=== PATIENT | female | born 1980 | race Caucasian/White ===

== ENCOUNTER → 2016-11-21 | Outpatient (CLI) | payer OTHER ==
[~2016-11-21] MED LIST: /BACL20TA PO; ADDE5TAB5 PO; ADV100INH INH; ADV500INH INH; ALB2.5NEB INH; ALBU17IN INH; BUTR10DI2 TD; CITA20TA4 PO; CLON-412 PO; COLA50CA3 PO; DULO30CA PO; FENT12PA TOP; IBUP200T2 PO; NAPR220T PO; NORE0.353 PO; PERC5TAB6 PO; SENO8.6T2 PO; TIZA4CAP PO; TRAM50TA2 PO; TRAZ50TA4 PO; ULTR50TA PO; VALI10TA PO; ZOFR20TA PO; [UNRECOGNIZED DRUG - CODE] PO; [UNRECOGNIZED DRUG - OTHER] PO
[2016-11-21 11:35] LABS: VITAMIN B12 LEVEL > 2000 PG/ML (247-911)
[2016-11-21 11:39] LABS: ALBUMIN 3.4 GM/DL (3.2-5.2); ALBUMIN/GLOBULIN RATIO 0.92 (1.00-1.93); ALKALINE PHOSPHATASE 65 U/L (45-117); ALT/SGPT 22 U/L (12-78); ANION GAP 6 MEQ/L (8-16); AST/SGOT 10 U/L (15-37); BILIRUBIN,TOTAL 0.4 MG/DL (0.2-1.0); BLOOD UREA NITROGEN 10 MG/DL (7-18); CALCIUM LEVEL 8.3 MG/DL (8.5-10.1); CARBON DIOXIDE LEVEL 27 MEQ/L (21-32); CHLORIDE LEVEL 107 MEQ/L (98-107); CHOLESTEROL LEVEL 172 MG/DL (<200); GLOMERULAR FILTRATION RATE > 60.0 (>60); GLUCOSE, FASTING 74 MG/DL (70-105); POTASSIUM SERUM 4.4 MEQ/L (3.5-5.1); SODIUM LEVEL 140 MEQ/L (136-145); TOTAL PROTEIN 7.1 GM/DL (6.4-8.2); TRIGLYCERIDES LEVEL 88 MG/DL (<150)
== END ==
LOC: M LAB 10:18
PROVIDERS: ATTEND Physician Assistant
DX: Z02.9 Encounter for administrative examinations, unspecified (principal); R53.82 Chronic fatigue, unspecified; R63.5 Abnormal weight gain; Z13.220 Encounter for screening for lipoid disorders

== ENCOUNTER → 2016-12-16 | Outpatient (CLI) | payer OTHER ==
[~2016-12-16] VITALS: Ht 165.1 cm; Wt 107.0 kg
[~2016-12-16] MED LIST changes: +BREO1INH INH; +FOLI1TAB2 PO; +LIDOCAINE 2% INJ 100 MG/5 ML SYRINGE As Ordered ONE; +MIRA33504 PO; +MULT1TAB10 PO; +NS 1,000 ML IV SCH; +OMEP40CA2 PO; +PROPOFOL 200 MG/20 ML VIAL As Ordered ONE; +VITA-112 PO; +ZYRT10CA PO
--- NOTE | 2016-12-16 13:29 | ROOR ---
Patient Name: Brooklynn Marino Procedure Date: 12/16/2016 1:11 PM Date of : 1980 Age: 35 Room: [facility] Gender: Female Note Status: Finalized Procedure: Upper GI endoscopy Indications: Functional Dyspepsia, Heartburn Providers: Benny LAU MD Referring MD: MACK VELOZ Requesting Provider: Medicines: Monitored Anesthesia Care Complications: No immediate complications. Procedure: Pre-Anesthesia Assessment: - The heart rate, respiratory rate, oxygen saturations, blood pressure, adequacy of pulmonary ventilation, and response to care were monitored throughout the procedure. The Endoscope was introduced through the mouth, and advanced to the second part of duodenum. The upper GI endoscopy was accomplished without difficulty. The patient tolerated the procedure well. Findings: The esophagus was normal. The stomach was normal. The examined duodenum was normal. (relatively large compliant stomach--Not necessarily abnormal, but may sometimes be seen with gastroparesis.) Impression: - Normal esophagus. - Normal stomach. - Normal examined duodenum. - (relatively large compliant stomach--Not necessarily abnormal, but may sometimes be seen with gastroparesis.) - No specimens collected. Recommendation: - Continue present medications. - Gastroparesis diet: - Eat smaller, more frequent meals throughout the day. - Low fat diet. - Liquid/soft foods are tolerated better than solid foods. - Low fiber/well cooked vegetables are tolerated better than high fiber/fibrous foods/raw vegetables. - Avoid medications that inhibit gastric/intestinal motility such as narcotic medications. Benny Lau MD Benny LAU MD 12/16/2016 1:29:16 PM This report has been signed electronically. Number of Addenda: 0 Note Initiated On: 12/16/2016 1:11 PM Estimated Blood Loss: Estimated blood loss: none.
--- NOTE | 2016-12-16 13:33 | ROOR ---
Patient Name: Brooklynn Marino Procedure Date: 12/16/2016 1:12 PM Date of : 1980 Age: 35 Room: [facility] Gender: Female Note Status: Finalized Procedure: Colonoscopy Indications: Generalized abdominal pain, Hematochezia, Constipation Providers: Benny LAU MD Referring MD: MACK VELOZ Requesting Provider: Medicines: Monitored Anesthesia Care Complications: No immediate complications. Procedure: Pre-Anesthesia Assessment: - The heart rate, respiratory rate, oxygen saturations, blood pressure, adequacy of pulmonary ventilation, and response to care were monitored throughout the procedure. The Colonoscope was introduced through the anus and advanced to 6 cm into the ileum. The colonoscopy was performed without difficulty. The patient tolerated the procedure well. The quality of the bowel preparation was good. Findings: The perianal and digital rectal examinations were normal. Internal hemorrhoids were found during retroflexion. The hemorrhoids were medium-sized. The area from rectum to ileum appeared normal. The colon (entire examined portion) appeared normal. The terminal ileum appeared normal. (Exam: Complete, Prep: Good or Excellent.) Impression: - Small to moderate Internal hemorrhoids. - The examined portion of the ileum is normal. - The entire colon is normal. - No specimens collected. Recommendation: - Continue present medications. Benny Lau MD Benny LAU MD 12/16/2016 1:33:02 PM This report has been signed electronically. Number of Addenda: 0 Note Initiated On: 12/16/2016 1:12 PM Estimated Blood Loss: Estimated blood loss: none.
[2016-12-16 13:55] VITALS: BP 115/56
== END | disposition home or self-care (01) ==
LOC: M OPP 11:03
PROVIDERS: ATTEND Internal Medicine Gastroenterology
DX: K64.8 Other hemorrhoids (principal); R10.84 Generalized abdominal pain; K92.1 Melena; K59.00 Constipation, unspecified; K30 Functional dyspepsia; R63.5 Abnormal weight gain; F41.9 Anxiety disorder, unspecified; R06.83 Snoring; J45.909 Unspecified asthma, uncomplicated; F17.210 Nicotine dependence, cigarettes, uncomplicated; I72.0 Aneurysm of carotid artery; I25.10 Atherosclerotic heart disease of native coronary artery without angina pectoris; F90.9 Attention-deficit hyperactivity disorder, unspecified type; Z88.0 Allergy status to penicillin; Z88.5 Allergy status to narcotic agent; Z79.899 Other long term (current) drug therapy

== ENCOUNTER → 2018-08-08 | Outpatient (CLI) | payer OTHER, SELFPAY | LOC: M RAD 11:30 | DX: E28.2 Polycystic ovarian syndrome (principal) | CPT/HCPCS: 76856 ==

== ENCOUNTER → 2019-08-05 | Outpatient (CLI) | payer OTHER ==
[~2019-08-05] MED LIST changes: -/BACL20TA PO; +ADDE1TAB14 PO; -ADDE5TAB5 PO; +BACL1TAB9 PO; +BUTR10DI TD; -BUTR10DI2 TD; -CITA20TA4 PO; +CITA20TA6 PO; -DULO30CA PO; +DULO30CA9 PO; +FENT12DI12 TOP; -FENT12PA TOP; +FOLI1TAB11 PO; -FOLI1TAB2 PO; -LIDOCAINE 2% INJ 100 MG/5 ML SYRINGE As Ordered ONE; -NS 1,000 ML IV SCH; -OMEP40CA2 PO; +OMEP40CA97 PO; +PERC5TAB12 PO; -PERC5TAB6 PO; -PROPOFOL 200 MG/20 ML VIAL As Ordered ONE; -SENO8.6T2 PO; +SENO8.6T5 PO; +TRAZ-252 PO; -TRAZ50TA4 PO; +VYVA30CA4 PO; -ZOFR20TA PO; +ZOFR4TAB16 PO; -[UNRECOGNIZED DRUG - CODE] PO
--- NOTE | 2019-08-05 08:42 | REP ---
Right long finger series. Two views. History: Trauma. Findings: AP and lateral views of the right long finger demonstrate a volar plate avulsion chip fracture from the base of the middle phalanx at the PIP joint with associated soft-tissue swelling. There is 1 mm of volar displacement. Electronically Signed by Nehemias Fox MD 08/05/2019 08:34 A
== END ==
LOC: M RAD 07:52
PROVIDERS: ATTEND Nurse Practitioner Family
DX: S63.432A Traumatic rupture of volar plate of right middle finger at metacarpophalangeal and interphalangeal joint, initial encounter (principal); X58.XXXA Exposure to other specified factors, initial encounter

== ENCOUNTER 2019-10-23 19:31 | Emergency (ER) | payer MEDICAID, OTHER, SELFPAY ==
[~2019-10-23] VITALS: Ht 165.1 cm; Wt 104.5 kg
[2019-10-23 19:33] VITALS: BP 134/94
[2019-10-23] MEDS ORDERED: METF10004 (19:43)
[2019-10-23] MEDS ORDERED: ALL10TAB29 (19:43)
[2019-10-23] MEDS ORDERED: BREO1INH3 (19:43)
[2019-10-23] MEDS ORDERED: ELIM5CRE2 TOP (22:32)
[2019-10-23] MEDS ORDERED: BENA25CA4 PO (22:32)
== END 2019-10-23 22:42 | disposition home or self-care (01) ==
LOC: M ED 19:31
DX: B86 Scabies (principal); E11.9 Type 2 diabetes mellitus without complications; F41.9 Anxiety disorder, unspecified; Z88.0 Allergy status to penicillin; Z88.5 Allergy status to narcotic agent; Z79.52 Long term (current) use of systemic steroids; Z79.84 Long term (current) use of oral hypoglycemic drugs; Z79.899 Other long term (current) drug therapy